=== PATIENT | female | born 1940 | race Caucasian/White ===

== ENCOUNTER → 2016-08-01 | Outpatient (CLI) | payer MEDICARE ==
[~2016-08-01] MED LIST: ASPI81 PO; ATOR10 PO; CARV12.52 PO; CINN500C7 PO; COZA100T PO; FLUTI110I INH; HYDR12.56 PO; ISOS30TA3 PO; NITR.4 SL; OCUVTAB PO; OMEGCAP2 PO; VITA500T83 PO
--- NOTE | 2016-08-12 09:31 | RSPPFT ---
DATE OF PROCEDURE: 08/01/16 COMMENTS: VOLUMES DYNAMIC: FVC normal; FEV1 mildly reduced. STATIC: RV mildly increased; VTG and TLC normal. FLOWS: FEV1% mildly reduced; FEF 25-75 severely reduced. DIFFUSION: Moderately reduced. FLOW VOLUME LOOP: Pattern of variable intrathoracic airways obstruction. IMPRESSION: Mild to moderate obstructive ventilatory defect with reduction in diffusion and increased airways resistance. There is significant improvement post-bronchodilator.
== END ==
LOC: HRSP 09:01
PROVIDERS: ATTEND Internal Medicine
DX: J45.909 Unspecified asthma, uncomplicated (principal)
CPT/HCPCS: 94060; 94726; 94729; 95012

== ENCOUNTER → 2017-03-31 | Outpatient (CLI) | payer MEDICARE ==
--- NOTE | 2017-04-04 10:24 | RSPPFT ---
DATE OF PROCEDURE: 03/31/17 COMMENTS: VOLUMES DYNAMIC: FVC and FEV1 normal. STATIC: TLC, RV and FRC normal. FLOWS: FEV1% mildly reduced; FEF 25-75 mildly reduced. DIFFUSION: Moderately reduced. FLOW VOLUME LOOP: Terminal airflow obstruction. IMPRESSION: Mild terminal airflow obstruction with an increase in airways resistance but no significant improvement post-bronchodilator. There is also a moderate reduction in diffusion.
== END ==
LOC: HRSP 07:49
PROVIDERS: ATTEND Internal Medicine
DX: J45.909 Unspecified asthma, uncomplicated (principal)
CPT/HCPCS: 94060; 94620; 94726; 94729; 95012